=== PATIENT | female | born 1930 | race Caucasian/White ===

== ENCOUNTER 2021-05-27 15:54 | Inpatient (IN) ==
[2021-05-27] MEDS ORDERED: 0.9 % Sodium Chloride 1,000 ML IVC ONE (16:56)
[2021-05-27] MEDS ORDERED: Ondansetron 4 MG/2 ML VIAL IVP ONE (17:25)
[2021-05-27 17:51] LABS: Albumin 4.3 g/dL (3.5-5.7); Albumin/Globulin Ratio 1.4 (1.1-2.2); Bilirubin,Direct 0.2 mg/dL (0.0-0.2); Bilirubin,Indirect 0.4 mg/dL (0.0-1.0); Bilirubin,Total 0.6 mg/dL (0.3-1.0); Total Protein 7.3 g/dL (6.4-8.9)
[2021-05-27 20:40] LABS: Bilirubin,Urine Negative (Negative); Blood,Urine Negative (Negative); Clarity,Urine Clear (Clear); Color,Urine Light-Yellow (Yellow); Glucose,Urine (UA) Normal (Normal); Hyaline Casts,Urine Few per lpf (None Seen); Ketones,Urine Negative (Negative); Leukocyte Esterase,Urine Small (Negative); Nitrite,Urine Negative (Negative); PH,Urine 6.5 pH Units (5.0-8.0); Protein,Urine Negative (Neg-Trace); RBC,Urine 0-3 per hpf (0-3); Specific Gravity,Urine 1.009 (1.010-1.025); Squamous Epithelial Cell,Urine Few per hpf (None-Few); Urobilinogen,Urine Normal (Normal); WBC,Urine 0-3 per hpf (0-3)
[2021-05-27] MEDS ORDERED: *HR* Promethazine 25 MG/ML VIAL IM PRN (21:25)
[2021-05-27] MEDS ORDERED: Acetaminophen 325 MG TABLET PO PRN (21:25)
[2021-05-27] MEDS ORDERED: Melatonin 3 MG TABLET PO PRN (21:25)
[2021-05-27] MEDS ORDERED: Naloxone 0.4 MG/ML INJ IVP PRN (21:25)
[2021-05-27] MEDS ORDERED: Gabapentin 100 MG CAPSULE PO ONE (22:23)
[2021-05-27] MEDS ORDERED: Pantoprazole 40 MG VIAL IVP ONE (22:25)
[2021-05-27] MEDS: Sennosides/Docusate Sodium TABLET PO SCH (23:20)
[2021-05-27] MEDS: Ringers Solution, Lactated 1,000 ML IVC SCH (23:20)
[2021-05-28] MEDS ORDERED: Iron Sucrose Complex 200 MG in 0.9 % Sodium Chloride 100 ML IVPB ONE (00:08)
[2021-05-28] MEDS: *HR* OxyCODONE Immed Rel 5 MG TABLET PO PRN ×2 (00:30→19:18)
[2021-05-28 00:31] LABS: Protein/Creatinine Ratio,Urine 0.32 mg/mg (0.00-0.20); Sodium, Urine 77.2 mEq/L
[2021-05-28] MEDS: *HR* Heparin 5,000 UNIT/ML VIAL SQ SCH ×3 (05:20→19:19)
[2021-05-28 06:43] LABS: Basophils % 0.2 %; Eosinophils % 0.1 %; Hematocrit 33.4 % (35.3-44.9); Hemoglobin 10.1 g/dL (11.5-15.4); Immature Granulocytes % 0.5 % (0-4); Lymphocytes # 1.8 K/mcL (0.6-4.6); Lymphocytes % 10.6 %; Mean Corpuscular HGB Conc 30.2 g/dL (31.6-35.5); Mean Corpuscular Hemoglobin 22.4 pg (28.0-33.3); Mean Corpuscular Volume 74.1 fL (83.0-100.0); Mean Platelet Volume 10.2 fL (9.4-12.4); Monocytes # 1.1 K/mcL (0.0-1.3); Monocytes % 6.4 %; Neutrophils # 13.6 K/mcL (1.6-8.9); Platelet Count 384 K/mcL (140-400); Red Blood Count 4.51 M/mcL (3.82-4.97); Red Cell Distribution Width 15.5 % (11.5-14.5); Segmented Neutrophils % 82.2 %; White Blood Count 16.5 K/mcL (4.3-11.1)
[2021-05-28 06:52] LABS: Calcium 9.7 mg/dL (8.6-10.3); Magnesium 2.5 mg/dL (1.6-2.6); Potassium 4.8 mEq/L (3.5-5.1)
[2021-05-28 06:54] LABS: INR 1.1; Prothrombin Time 12.3 Seconds (9.4-12.1)
[2021-05-28 06:55] LABS: % Iron Saturation 106 % (15-50); Iron 424 mcg/dL (50-170); Transferrin 286 mg/dL (203-362)
[2021-05-28 07:11] LABS: Ferritin 16 ng/mL (10-120)
[2021-05-28] MEDS ORDERED: Milk and Molasses Enema 200 ML RC ONE (07:17)
[2021-05-28] MEDS: Ringers Solution, Lactated 1,000 ML IVC SCH (09:06)
[2021-05-28] MEDS: Sennosides/Docusate Sodium TABLET PO SCH ×2 (09:07→19:18)
[2021-05-28] MEDS: *HR* FentaNYL PATCH 100 MCG PATCH TD SCH (09:44)
[2021-05-28] MEDS: amLODIPine 5 MG TABLET PO SCH (19:18)
[2021-05-29 01:14] LABS: Basophils # 0.1 K/mcL (0.0-0.2); Basophils % 0.3 %; Eosinophils % 0.2 %; Hematocrit 32.1 % (35.3-44.9); Hemoglobin 9.6 g/dL (11.5-15.4); Immature Granulocytes % 0.5 % (0-4); Lymphocytes % 10.8 %; Mean Corpuscular HGB Conc 29.9 g/dL (31.6-35.5); Mean Corpuscular Hemoglobin 23.2 pg (28.0-33.3); Mean Corpuscular Volume 77.5 fL (83.0-100.0); Mean Platelet Volume 9.6 fL (9.4-12.4); Monocytes # 1.4 K/mcL (0.0-1.3); Monocytes % 8.1 %; Neutrophils # 13.7 K/mcL (1.6-8.9); Platelet Count 346 K/mcL (140-400); Red Blood Count 4.14 M/mcL (3.82-4.97); Red Cell Distribution Width 16.3 % (11.5-14.5); Segmented Neutrophils % 80.1 %; White Blood Count 17.1 K/mcL (4.3-11.1)
[2021-05-29 01:21] LABS: Lymphocytes # 1.9 K/mcL (0.6-4.6)
[2021-05-29 01:34] LABS: Calcium 9.4 mg/dL (8.6-10.3); Potassium 4.1 mEq/L (3.5-5.1)
[2021-05-29] MEDS: *HR* Heparin 5,000 UNIT/ML VIAL SQ SCH ×3 (05:20→20:02)
[2021-05-29] MEDS: amLODIPine 5 MG TABLET PO SCH (07:27)
[2021-05-29] MEDS: Sennosides/Docusate Sodium TABLET PO SCH ×2 (07:27→20:02)
[2021-05-29] MEDS: *HR* OxyCODONE Immed Rel 5 MG TABLET PO PRN (13:34)
[2021-05-29] MEDS: Ondansetron 4 MG/2 ML VIAL IVP PRN (18:38)
[2021-05-30 05:49] LABS: Basophils # 0.1 K/mcL (0.0-0.2); Basophils % 0.4 %; Eosinophils # 0.1 K/mcL (0.0-0.6); Eosinophils % 0.8 %; Hematocrit 30.4 % (35.3-44.9); Hemoglobin 9.2 g/dL (11.5-15.4); Immature Granulocytes % 0.5 % (0-4); Lymphocytes # 3.1 K/mcL (0.6-4.6); Lymphocytes % 23.4 %; Mean Corpuscular HGB Conc 30.3 g/dL (31.6-35.5); Mean Corpuscular Hemoglobin 23.2 pg (28.0-33.3); Mean Corpuscular Volume 76.8 fL (83.0-100.0); Mean Platelet Volume 10.6 fL (9.4-12.4); Monocytes # 1.1 K/mcL (0.0-1.3); Monocytes % 8.6 %; Neutrophils # 8.8 K/mcL (1.6-8.9); Platelet Count 329 K/mcL (140-400); Red Blood Count 3.96 M/mcL (3.82-4.97); Red Cell Distribution Width 16.2 % (11.5-14.5); Segmented Neutrophils % 66.3 %; White Blood Count 13.2 K/mcL (4.3-11.1)
[2021-05-30 06:15] LABS: Calcium 9.2 mg/dL (8.6-10.3); Potassium 3.8 mEq/L (3.5-5.1)
[2021-05-30] MEDS: *HR* Heparin 5,000 UNIT/ML VIAL SQ SCH ×2 (06:56→13:55)
[2021-05-30] MEDS: Ondansetron 4 MG/2 ML VIAL IVP PRN ×2 (06:56→19:37)
[2021-05-30] MEDS: calcitrioL 0.25 MCG CAPSULE PO SCH (07:31)
[2021-05-30] MEDS: Sennosides/Docusate Sodium TABLET PO SCH ×2 (07:31→19:35)
[2021-05-30] MEDS: amLODIPine 5 MG TABLET PO SCH (07:31)
[2021-05-30] MEDS ORDERED: GI Cocktail 40 ML EACH PO ONE (09:21)
[2021-05-30] MEDS: D5% in 0.9% NACL 1,000 ML IVC SCH (11:35)
[2021-05-30] MEDS: Sucralfate 1 GM TABLET PO SCH ×3 (11:35→19:35)
[2021-05-30] MEDS: *HR* OxyCODONE Immed Rel 5 MG TABLET PO PRN ×2 (12:46→19:34)
[2021-05-31] MEDS: *HR* Heparin 5,000 UNIT/ML VIAL SQ SCH ×2 (00:37→06:05)
[2021-05-31] MEDS: D5% in 0.9% NACL 1,000 ML IVC SCH (00:43)
[2021-05-31 03:23] LABS: Basophils % 0.4 %; Eosinophils # 0.2 K/mcL (0.0-0.6); Eosinophils % 1.5 %; Hematocrit 29.8 % (35.3-44.9); Immature Granulocytes % 0.6 % (0-4); Lymphocytes # 2.1 K/mcL (0.6-4.6); Lymphocytes % 19.3 %; Mean Corpuscular HGB Conc 30.2 g/dL (31.6-35.5); Mean Corpuscular Hemoglobin 22.8 pg (28.0-33.3); Mean Corpuscular Volume 75.4 fL (83.0-100.0); Monocytes # 0.8 K/mcL (0.0-1.3); Monocytes % 7.7 %; Neutrophils # 7.6 K/mcL (1.6-8.9); Platelet Count 304 K/mcL (140-400); Red Blood Count 3.95 M/mcL (3.82-4.97); Segmented Neutrophils % 70.5 %; White Blood Count 10.7 K/mcL (4.3-11.1)
[2021-05-31 04:08] LABS: Potassium 3.6 mEq/L (3.5-5.1)
[2021-05-31 07:18] VITALS: BP 166/61; PULSE 55; TEMP 98.2; O2SAT 94
[2021-05-31] MEDS: *HR* FentaNYL PATCH 100 MCG PATCH TD SCH (08:29)
[2021-05-31] MEDS: calcitrioL 0.25 MCG CAPSULE PO SCH (08:29)
[2021-05-31] MEDS: Sucralfate 1 GM TABLET PO SCH (08:29)
[2021-05-31] MEDS: Sennosides/Docusate Sodium TABLET PO SCH (08:30)
[2021-05-31] MEDS ORDERED: amLODIPine 5 MG TABLET PO SCH (09:00)
== END 2021-05-31 11:08 | disposition home or self-care (01) | DRG 683 ==
LOC: EMEROOARM 15:54 → 3BNU 15:54 → SUATTDRO 21:33 → 3BNU 23:01
PROVIDERS: ADMIT Internal Medicine; ATTEND Internal Medicine

== ENCOUNTER 2021-07-21 17:38 | Inpatient (IN) ==
[2021-07-21 19:13] LABS: Immature Granulocytes % 0.7 % (0-4)
[2021-07-21 19:14] LABS: Basophils % 0.1 %
[2021-07-21 19:16] LABS: Hematocrit 36.8 % (35.3-44.9); Hemoglobin 11.6 g/dL (11.5-15.4); Lymphocytes # 0.8 K/mcL (0.6-4.6); Mean Corpuscular HGB Conc 31.5 g/dL (31.6-35.5); Mean Corpuscular Hemoglobin 24.5 pg (28.0-33.3); Mean Corpuscular Volume 77.6 fL (83.0-100.0); Mean Platelet Volume 9.5 fL (9.4-12.4); Monocytes # 1.6 K/mcL (0.0-1.3); Neutrophils # 24.2 K/mcL (1.6-8.9); Platelet Count 447 K/mcL (140-400); Red Blood Count 4.74 M/mcL (3.82-4.97); Red Cell Distribution Width 22.3 % (11.5-14.5); Segmented Neutrophils % 90.2 %; White Blood Count 26.8 K/mcL (4.3-11.1)
[2021-07-21 19:29] LABS: Calcium 8.7 mg/dL (8.6-10.3); Potassium 2.5 mEq/L (3.5-5.1)
[2021-07-21] MEDS ORDERED: cefTRIAXone 1,000 MG in Water for inj. (sterile) 10 ML IVP ONE (19:53)
[2021-07-21] MEDS ORDERED: Morphine Sulfate 2 MG/ML SYRINGE IVP ONE (19:54)
[2021-07-21] MEDS ORDERED: Ondansetron 4 MG/2 ML VIAL IVP PRN (20:04)
[2021-07-21 20:21] LABS: Bilirubin,Urine Negative (Negative); Blood,Urine Large (Negative); Clarity,Urine Clear (Clear); Color,Urine Yellow (Yellow); Glucose,Urine (UA) Normal (Normal); Ketones,Urine Negative (Negative); Leukocyte Esterase,Urine Small (Negative); Nitrite,Urine Negative (Negative); PH,Urine 6.5 pH Units (5.0-8.0); Protein,Urine Negative (Neg-Trace); Urobilinogen,Urine Normal (Normal)
[2021-07-21 20:29] LABS: Bacteria,Urine Few per hpf (None-Few); Hyaline Casts,Urine Few per lpf (None Seen); RBC,Urine 30-50 per hpf (0-3); Squamous Epithelial Cell,Urine Few per hpf (None-Few)
[2021-07-21 21:57] LABS: Albumin 3.1 g/dL (3.5-5.7); Albumin/Globulin Ratio 1.2 (1.1-2.2); Bilirubin,Direct 0.2 mg/dL (0.0-0.2); Bilirubin,Indirect 0.5 mg/dL (0.0-1.0); Bilirubin,Total 0.7 mg/dL (0.3-1.0); Total Protein 5.6 g/dL (6.4-8.9)
[2021-07-21 21:58] LABS: Globulin 2.5 g/dL (2.4-3.5)
[2021-07-21 22:02] LABS: INR 1.3; Prothrombin Time 14.3 Seconds (9.4-12.1)
[2021-07-21] MEDS ORDERED: Gadolinium Contrast Agent (WT Based) IV PRN (22:55)
[2021-07-21] MEDS ORDERED: Melatonin 3 MG TABLET PO PRN (23:07)
[2021-07-22] MEDS: 0.9 % Sodium Chloride 1,000 ML IVC SCH ×2 (00:19→15:51)
[2021-07-22] MEDS: MetroNIDAZOLE 500 MG/100 ML 500 MG/100 ML BAG IVPB SCH ×5 (01:19→23:12)
[2021-07-22 05:49] LABS: INR 1.3; Prothrombin Time 14.3 Seconds (9.4-12.1)
[2021-07-22 05:54] LABS: Calcium 8.1 mg/dL (8.6-10.3); Potassium 3.1 mEq/L (3.5-5.1)
[2021-07-22 05:56] LABS: Basophils # 0.1 K/mcL (0.0-0.2); Basophils % 0.2 %; Eosinophils % 0.1 %; Hematocrit 30.6 % (35.3-44.9); Hemoglobin 9.8 g/dL (11.5-15.4); Immature Granulocytes % 0.7 % (0-4); Lymphocytes # 1.2 K/mcL (0.6-4.6); Lymphocytes % 3.9 %; Mean Corpuscular Hemoglobin 24.9 pg (28.0-33.3); Mean Corpuscular Volume 77.7 fL (83.0-100.0); Mean Platelet Volume 10.1 fL (9.4-12.4); Monocytes # 1.6 K/mcL (0.0-1.3); Monocytes % 5.3 %; Neutrophils # 27.7 K/mcL (1.6-8.9); Platelet Count 398 K/mcL (140-400); Red Blood Count 3.94 M/mcL (3.82-4.97); Red Cell Distribution Width 21.8 % (11.5-14.5); Segmented Neutrophils % 89.8 %
[2021-07-22 06:00] LABS: White Blood Count 30.8 K/mcL (4.3-11.1)
[2021-07-22 06:11] LABS: Platelet Estimate Normal (Normal)
[2021-07-22 06:12] LABS: Toxic Granulation Present (Not Present)
[2021-07-22 06:16] LABS: Calcium 8.1 mg/dL (8.6-10.3); Magnesium 1.8 mg/dL (1.6-2.6); Potassium 3.2 mEq/L (3.5-5.1)
[2021-07-22 07:13] LABS: Albumin 2.5 g/dL (3.5-5.7); Albumin/Globulin Ratio 1.3 (1.1-2.2); Bilirubin,Direct 0.2 mg/dL (0.0-0.2); Bilirubin,Indirect 0.3 mg/dL (0.0-1.0); Bilirubin,Total 0.5 mg/dL (0.3-1.0); Total Protein 4.5 g/dL (6.4-8.9)
[2021-07-22] MEDS ORDERED: Dextrose Gel 15 GM/37.5 ML TUBE PO PRN ×2 (08:57)
[2021-07-22] MEDS ORDERED: D5% in Water 1,000 ML IVC PRN (08:57)
[2021-07-22] MEDS ORDERED: *HR* Dextrose 50 % in Water (Syg) 50 ML SYRINGE IVP PRN (08:57)
[2021-07-22] MEDS ORDERED: Ondansetron 4 MG/2 ML VIAL IVP PRN (10:32)
[2021-07-22] MEDS ORDERED: *HR* FentaNYL (PF) 100 MCG/2 ML VIAL IVP PRN (10:32)
[2021-07-22] MEDS ORDERED: Albuterol 2.5 MG/3 ML NEBULIZER IH PRN (10:32)
[2021-07-22] MEDS ORDERED: Indomethacin 50 MG SUPP.RECT RC ONE (11:05)
[2021-07-22] MEDS ORDERED: Lidocaine HCL 4 ML Topical Solution (Laryng-O-Jet Kit Sterile Pak) TP ONE (11:30)
[2021-07-22] MEDS ORDERED: Ondansetron 4 MG/2 ML VIAL ONE (11:30)
[2021-07-22] MEDS ORDERED: *HR* Rocuronium Bromide 50 MG/5 ML VIAL ONE (11:30)
[2021-07-22] MEDS ORDERED: Lidocaine -MPF 2% 5 ML VIAL ONE (11:30)
[2021-07-22] MEDS ORDERED: GADOBUTROL 30 MMOL/30 ML VIAL IVP ONE (12:56)
[2021-07-22 16:59] LABS: BUN/Creatinine Ratio 23 (6-26); Blood Urea Nitrogen 23 mg/dL (8-23); Calcium 8.5 mg/dL (8.6-10.3); Carbon Dioxide 25 mEq/L (23-29); Chloride 94 mEq/L (98-107); Glucose 110 mg/dL (70-105); Magnesium 1.9 mg/dL (1.6-2.6); Osmolality,Calculated 274 (280-300); Potassium 3.2 mEq/L (3.5-5.1); Sodium 130 mEq/L (136-145); eGFR For African Americans > 60 (> 60); eGFR For Non-African Americans 51 (> 60)
[2021-07-22] MEDS ORDERED: Potassium Chloride Elixir 20 MEQ/15 ML UDC PO ONE (17:36)
[2021-07-22] MEDS ORDERED: 0.9 % Sodium Chloride 1,000 ML IVC SCH (18:35)
[2021-07-22 22:53] LABS: Influenza A PCR Negative (Negative); Influenza B PCR Negative (Negative); Resp. Syncytial Virus PCR Negative (Negative)
[2021-07-22 22:59] LABS: SARS-CoV-2 by PCR (In House) Negative (Negative)
[2021-07-22 23:02] LABS: ABG Base Excess -2 mEq/L (-2 to 3); ABG HCO3 21 mEq/L (21-27); ABG Oxygen Saturation 99 % (95-98); ABG PCO2 31 mmHg (35-45); ABG PH 7.44 pH Units (7.32-7.45); ABG PO2 108 mmHg (85-104); ABG TCO2 22 mEq/L (20-26)
[2021-07-23 00:14] LABS: Hemoglobin 11.3 g/dL (11.5-15.4); Mean Platelet Volume 9.7 fL (9.4-12.4); Red Cell Distribution Width 22.5 % (11.5-14.5)
[2021-07-23 00:15] LABS: Basophils # 0.1 K/mcL (0.0-0.2); Basophils % 0.2 %; Eosinophils % 0.1 %; Hematocrit 34.8 % (35.3-44.9); Immature Granulocytes % 1.1 % (0-4); Lymphocytes # 0.4 K/mcL (0.6-4.6); Mean Corpuscular HGB Conc 32.5 g/dL (31.6-35.5); Mean Corpuscular Hemoglobin 25.1 pg (28.0-33.3); Mean Corpuscular Volume 77.3 fL (83.0-100.0); Monocytes # 0.8 K/mcL (0.0-1.3); Monocytes % 2.1 %; Platelet Count 418 K/mcL (140-400); Segmented Neutrophils % 95.5 %
[2021-07-23 00:17] LABS: Neutrophils # 37.5 K/mcL (1.6-8.9); White Blood Count 39.3 K/mcL (4.3-11.1)
[2021-07-23 00:29] LABS: Anisocytosis 2+ (Not Present); Microcytosis Present (Not Present); Platelet Clumps Few (Not Present)
[2021-07-23 00:32] LABS: Alanine Aminotransferase 36 Units/L (7-52); Albumin 2.9 g/dL (3.5-5.7); Alkaline Phosphatase 111 Units/L (34-104); Aspartate Amino Transferase 24 Units/L (13-39); BUN/Creatinine Ratio 26 (6-26); Bilirubin,Total 0.7 mg/dL (0.3-1.0); Blood Urea Nitrogen 25 mg/dL (8-23); Calcium 8.6 mg/dL (8.6-10.3); Carbon Dioxide 21 mEq/L (23-29); Chloride 94 mEq/L (98-107); Globulin 2.8 g/dL (2.4-3.5); Glucose 151 mg/dL (70-105); Osmolality,Calculated 277 (280-300); Sodium 130 mEq/L (136-145); Total Protein 5.7 g/dL (6.4-8.9); eGFR For African Americans > 60 (> 60); eGFR For Non-African Americans 54 (> 60)
[2021-07-23 04:08] LABS: Eosinophils % 0.1 %
[2021-07-23 04:09] LABS: Basophils # 0.1 K/mcL (0.0-0.2); Basophils % 0.2 %; Eosinophils # 0.1 K/mcL (0.0-0.6); Hematocrit 34.8 % (35.3-44.9); Immature Granulocytes % 1.6 % (0-4); Lymphocytes # 0.4 K/mcL (0.6-4.6); Lymphocytes % 0.8 %; Mean Corpuscular HGB Conc 31.6 g/dL (31.6-35.5); Mean Corpuscular Hemoglobin 24.5 pg (28.0-33.3); Mean Corpuscular Volume 77.5 fL (83.0-100.0); Mean Platelet Volume 9.6 fL (9.4-12.4); Monocytes # 1.8 K/mcL (0.0-1.3); Monocytes % 3.7 %; Neutrophils # 45.2 K/mcL (1.6-8.9); Platelet Count 421 K/mcL (140-400); Red Blood Count 4.49 M/mcL (3.82-4.97); Red Cell Distribution Width 22.2 % (11.5-14.5); Segmented Neutrophils % 93.6 %
[2021-07-23 04:13] LABS: INR 1.3; Prothrombin Time 14.7 Seconds (9.4-12.1)
[2021-07-23] MEDS ORDERED: 0.9 % Sodium Chloride 500 ML IV ONE (04:28)
[2021-07-23 04:30] LABS: BUN/Creatinine Ratio 27 (6-26); Blood Urea Nitrogen 27 mg/dL (8-23); Calcium 8.9 mg/dL (8.6-10.3); Carbon Dioxide 21 mEq/L (23-29); Chloride 96 mEq/L (98-107); Glucose 145 mg/dL (70-105); Magnesium 1.8 mg/dL (1.6-2.6); Osmolality,Calculated 282 (280-300); Potassium 3.7 mEq/L (3.5-5.1); Sodium 132 mEq/L (136-145); eGFR For African Americans > 60 (> 60); eGFR For Non-African Americans 52 (> 60)
[2021-07-23 04:32] LABS: White Blood Count 48.3 K/mcL (4.3-11.1)
[2021-07-23 04:38] LABS: Anisocytosis 3+ (Not Present); Microcytosis Present (Not Present); Platelet Estimate Normal (Normal); Poikilocytosis 1+ (Not Present); Target Cells 1+ (Not Present)
[2021-07-23] MEDS ORDERED: cefTRIAXone 1,000 MG in 0.9 % Sodium Chloride Mini Bag 100 ML IVPB ONE (04:41)
[2021-07-23 05:42] LABS: Bilirubin,Direct 0.2 mg/dL (0.0-0.2); Bilirubin,Indirect 0.5 mg/dL (0.0-1.0)
[2021-07-23] MEDS: MetroNIDAZOLE 500 MG/100 ML 500 MG/100 ML BAG IVPB SCH ×3 (05:46→20:19)
[2021-07-23] MEDS ORDERED: Vancomycin 1 EACH in 0.9 % Sodium Chloride 250 ML IVPB PRN (07:00)
[2021-07-23] MEDS ORDERED: calcitrioL 0.25 MCG CAPSULE PO SCH (09:00)
[2021-07-23] MEDS ORDERED: *HR* FentaNYL PATCH 100 MCG PATCH TD SCH (09:00)
[2021-07-23] MEDS ORDERED: amLODIPine 5 MG TABLET PO SCH (09:00)
[2021-07-23] MEDS ORDERED: *HR* Midazolam HCl 2 MG/2 ML VIAL IVP ONE (09:33)
[2021-07-23] MEDS ORDERED: *HR* FentaNYL (PF) 100 MCG/2 ML VIAL IVP ONE (09:33)
[2021-07-23] MEDS ORDERED: 0.9 % Sodium Chloride 500 ML ONE (09:48)
[2021-07-23] MEDS ORDERED: Heparin 1,000 UNITS/500 mL 500 ML ONE (09:48)
[2021-07-23] MEDS ORDERED: Hydrocortisone Sodium Succ 100 MG/2 ML VIAL IVP ONE (10:04)
[2021-07-23] MEDS ORDERED: 0.9 % Sodium Chloride 1,000 ML IVC SCH (10:41)
[2021-07-23] MEDS ORDERED: Isovue-300 50ML VIAL IVP ONE ×2 (11:08→11:09)
[2021-07-23] MEDS ORDERED: Water for inj. (sterile) 10 ML ONE (11:09)
[2021-07-23] MEDS: Cefepime HCl 1,000 MG in 0.9 % Sodium Chloride Mini Bag 100 ML IVPB SCH ×2 (11:10→21:34)
[2021-07-23 12:21] LABS: Basophils # 0.1 K/mcL (0.0-0.2); Basophils % 0.2 %; Hematocrit 31.3 % (35.3-44.9); Hemoglobin 10.5 g/dL (11.5-15.4); Immature Granulocytes % 4.9 % (0-4); Lymphocytes # 0.5 K/mcL (0.6-4.6); Lymphocytes % 0.9 %; Mean Corpuscular HGB Conc 33.5 g/dL (31.6-35.5); Mean Corpuscular Hemoglobin 25.5 pg (28.0-33.3); Mean Platelet Volume 9.8 fL (9.4-12.4); Monocytes % 3.8 %; Platelet Count 391 K/mcL (140-400); Red Blood Count 4.12 M/mcL (3.82-4.97); Red Cell Distribution Width 21.9 % (11.5-14.5); Segmented Neutrophils % 90.2 %
[2021-07-23 12:29] LABS: White Blood Count 52.1 K/mcL (4.3-11.1)
[2021-07-23 12:48] LABS: Platelet Estimate Normal (Normal)
[2021-07-23] MEDS ORDERED: Ondansetron 4 MG/2 ML VIAL IVP PRN (14:24)
[2021-07-24 02:42] LABS: ABG Base Excess -9 mEq/L (-2 to 3); ABG HCO3 16 mEq/L (21-27); ABG Oxygen Saturation 94 % (95-98); ABG PCO2 28 mmHg (35-45); ABG PH 7.35 pH Units (7.32-7.45); ABG PO2 71 mmHg (85-104); ABG TCO2 17 mEq/L (20-26)
[2021-07-24] MEDS ORDERED: 0.9 % Sodium Chloride 1,000 ML IV ONE ×3 (02:46→04:56)
[2021-07-24] MEDS: Naloxone 0.4 MG/ML INJ IVP PRN ×2 (02:51→02:56)
[2021-07-24 02:56] LABS: Basophils % 0.2 %
[2021-07-24 02:57] LABS: Basophils # 0.1 K/mcL (0.0-0.2); Eosinophils % 0.1 %; Hematocrit 26.8 % (35.3-44.9); Hemoglobin 8.6 g/dL (11.5-15.4); Immature Granulocytes % 3.4 % (0-4); Lymphocytes # 0.9 K/mcL (0.6-4.6); Mean Corpuscular HGB Conc 32.1 g/dL (31.6-35.5); Mean Corpuscular Hemoglobin 25.2 pg (28.0-33.3); Mean Corpuscular Volume 78.6 fL (83.0-100.0); Mean Platelet Volume 10.3 fL (9.4-12.4); Monocytes # 1.6 K/mcL (0.0-1.3); Monocytes % 3.6 %; Neutrophils # 39.3 K/mcL (1.6-8.9); Platelet Count 260 K/mcL (140-400); Red Blood Count 3.41 M/mcL (3.82-4.97); Red Cell Distribution Width 22.8 % (11.5-14.5); Segmented Neutrophils % 90.7 %
[2021-07-24 03:06] LABS: White Blood Count 43.3 K/mcL (4.3-11.1)
[2021-07-24 03:16] LABS: Albumin 1.8 g/dL (3.5-5.7); Albumin/Globulin Ratio 1.1 (1.1-2.2); Bilirubin,Direct 0.4 mg/dL (0.0-0.2); Bilirubin,Indirect 0.3 mg/dL (0.0-1.0); Bilirubin,Total 0.7 mg/dL (0.3-1.0); Calcium 7.6 mg/dL (8.6-10.3); Globulin 1.7 g/dL (2.4-3.5); Magnesium 1.8 mg/dL (1.6-2.6); Potassium 4.8 mEq/L (3.5-5.1); Total Protein 3.5 g/dL (6.4-8.9)
[2021-07-24 04:11] LABS: Anisocytosis 3+ (Not Present); Hypochromasia Present (Not Present)
[2021-07-24 04:12] LABS: Platelet Estimate Normal (Normal)
[2021-07-24 05:08] VITALS: TEMP 97.7
[2021-07-24 05:52] VITALS: BP 108/55; PULSE 71; O2SAT 97
[2021-07-24] MEDS ORDERED: Norepinephrine 4 MG/254 ML in 0.9% Sodium Chloride IVC ONE (05:59)
[2021-07-24] MEDS ORDERED: Pantoprazole 40 MG VIAL IVP SCH (09:00)
== END 2021-07-24 06:00 | disposition short-term general hospital (02) | DRG 417 ==
LOC: 2ANU 17:38 → EMEROOARM 17:38 → OBSVTOIN 22:22 → SUATTDRO 22:22 → 2ANU 23:17
PROVIDERS: ADMIT Internal Medicine; ATTEND Internal Medicine